=== PATIENT | female | born 1945 | race Caucasian/White ===

== ENCOUNTER 2017-03-27 10:36 | Outpatient (CLI) | payer MEDICARE, OTHER ==
[2017-03-27 18:17] LABS: ALBUMIN/GLOBULIN RATIO 1.3 (1.0-2.2); BILIRUBIN,TOTAL 0.7 mg/dL (0.2-1.0); BUN - BLOOD UREA NITROGEN 18 mg/dL (6-20); CARBON DIOXIDE - CO2 29 mmol/L (21-32); CHLORIDE 102 mmol/L (101-111); CHOL/HDL RATIO 4.1 (<4.4); CHOLESTEROL 186 mg/dL; CREATININE 0.8 mg/dL (0.4-1.0); GFR - MDRD 70 (>89); GLUCOSE 113 mg/dL (70-100); HDL CHOLESTEROL 45 mg/dL; LDL/HDL RATIO 2.4 (<4.4); POTASSIUM 3.8 mmol/L (3.5-5.0); SODIUM 139 mmol/L (135-145); TOTAL PROTEIN 6.8 g/dL (6.7-8.2); TRIGLYCERIDES 156 mg/dL; VLDL CHOLESTEROL 31 mg/dL
[2017-03-27 19:07] LABS: HEMOGLOBIN A1C 0.62 g/dL
== END 2017-03-27 10:37 | disposition home or self-care (01) ==
LOC: LAB.F 10:36
PROVIDERS: ATTEND Nurse Practitioner Family
DX: I10 Essential (primary) hypertension (principal); R73.01 Impaired fasting glucose; E78.5 Hyperlipidemia, unspecified
CPT/HCPCS: 36415; 80053; 80061; 83036

== ENCOUNTER 2021-09-23 10:44 | Outpatient (CLI) | payer MEDICARE, OTHER ==
--- NOTE | 2021-09-23 16:18 | DEXA Report ---
PROCEDURE: Dexa Spine and/or Hip INDICATIONS: POST MENOPAUSAL TECHNIQUE: Dual energy x-ray absorptiometry (DXA) was performed on a [employer] System. Regions measur ed are the AP Spine, femoral neck, and if needed forearm. COMPARISON: None. FINDINGS: Lumbar Spine: Bone Mineral Density 1.346 g/cm/cm,T score 1.4, normal Left Hip: Bone Mineral Density 0.916 g/cm/cm,T score -0.7, normal Left Femoral Neck: Bone Mineral Density 0.803 g/cm/cm, T score -1.7, osteopenia Impression: Osteopenia on the basis of left femoral neck bone mineral density. Patients with diagnosis of osteoporosis or osteopenia should have regular bone mineral density assess ment. For those eligible for Medicare, routine testing is allowed once every 2 years. Testing frequ ency can be increased for patients who have rapidly progressing disease or for those who are receivin g medical therapy to restore bone mass. Reviewed by: Dewey Rico MD on 09/23/2021 4:17 PM PDT Approved by: Dewey Rico MD on 09/23/2021 4:17 PM PDT Station ID: [id number]
== END 2021-09-23 10:45 | disposition home or self-care (01) ==
LOC: DI 10:44
PROVIDERS: ATTEND Nurse Practitioner Family
DX: Z78.0 Asymptomatic menopausal state (principal); M85.88 Other specified disorders of bone density and structure, other site

== ENCOUNTER 2021-09-23 10:47 | Outpatient (CLI) | payer MEDICARE, OTHER ==
--- NOTE | 2021-09-23 15:02 | XRAY Report ---
PROCEDURE: Shoulder 3 View BILAT INDICATIONS: KRYSTIAN SH PN, LOW BACK PN, KRYSTIAN KNEE PN, RADICULOPATHY TECHNIQUE: 3 views of each shoulder were acquired. COMPARISON: None. FINDINGS: Bones: No acute fractures or dislocations. No suspicious bony lesions. Severe degenerative changes are seen in the glenohumeral joints bilaterally with full-thickness joint space narrowing, subchondra l sclerosis, and marginal osteophyte formation. There is prominent remodeling of the humeral heads, w hich may be secondary to primary osteoarthrosis, prior trauma or osteonecrosis with superimposed dege nerative changes, or neuropathic arthropathy. Minimal acromioclavicular degenerative changes are seen . Soft tissues: No suspicious soft tissue calcifications. IMPRESSION: Severe degenerative changes in the bilateral glenohumeral joints with remodeling and fla ttening of the humeral heads, possibly secondary to primary osteoarthrosis, prior trauma or osteonecr osis with superimposed degenerative changes, or neuropathic arthropathy. Reviewed by: Vimal Bennett MD on 09/23/2021 3:01 PM PDT Approved by: Vimal Bennett MD on 09/23/2021 3:01 PM PDT Station ID: [id number]
--- NOTE | 2021-09-23 15:06 | XRAY Report ---
PROCEDURE: Knee 3 View BILAT INDICATIONS: KRYSTIAN SH PN, LOW BK PN, KRYSTIAN KNEE PN TECHNIQUE: 3 views of each knee were acquired. COMPARISON: None. FINDINGS: Bones: No acute fractures or dislocations. No suspicious bony lesions. There is severe narrowing o f the right medial femorotibial compartment joint space with subchondral sclerosis and marginal osteo phyte formation and chronic remodeling of the articular surfaces. Resulting right genu varus is noted . Mild lateral compartment and moderate anterior compartment degenerative changes also noted. Moderat e to severe narrowing of the left medial femorotibial compartment and severe narrowing of the left an terior compartment joint space is also seen with mild degenerative changes at the lateral compartment . Soft tissues: No joint effusion. No suspicious soft tissue calcifications. 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 2.Left tricompartmental osteoarthrosis is severe in the anterior compartment and moderate to severe i n the medial compartment. Reviewed by: Vimal Bennett MD on 09/23/2021 3:04 PM PDT Approved by: Vimal Bennett MD on 09/23/2021 3:04 PM PDT Station ID: [id number]
--- NOTE | 2021-09-23 16:28 | XRAY Report ---
PROCEDURE: Thoracic Spine 2 View INDICATIONS: KRYSTIAN SH PN, LOW BACK PN, KRYSTIAN KNEE PN, RADICULOPATHY TECHNIQUE: 2 views of the thoracic spine were acquired. COMPARISON: None. FINDINGS: Bones: No fractures or dislocations. No suspicious bony lesions. 12 pairs of ribs are noted, and a ppear intact where visualized. Moderate to severe degenerative disc changes noted throughout the thor acic spine. Convex right thoracolumbar junction scoliosis. Moderate facet hypertrophy in the mid lowe r thoracic spine. Soft tissues: No paravertebral stripe thickening. IMPRESSION: 1. Multilevel degenerative disc disease. 2. Multilevel facet arthropathy. 3. No fracture. No acute osseous lesion. If there is continued clinical concern for pathology, then M RI should be considered for further evaluation. Reviewed by: Nora Scott MD, PhD on 09/23/2021 4:26 PM PDT Approved by: Nora Scott MD, PhD on 09/23/2021 4:26 PM PDT Station ID: [id number]
--- NOTE | 2021-09-23 16:31 | XRAY Report ---
PROCEDURE: Lumbar Spine 2 View INDICATIONS: KRYSTIAN SH PN, LOW BACK PN, KRYSTIAN KNEE PN, RADICULOPATHY TECHNIQUE: 30 views of the lumbar spine were acquired. COMPARISON: None. FINDINGS: Bones: 5 [id number] vertebrae are present. There is mild, approximate 5 mm of L1-L2 retrolisth esis. There is convex-right: Lumbar spine scoliosis. Severe degenerative disc changes noted throughou t the lumbar spine. Moderate facet hypertrophy noted throughout the lumbar spine. No vertebral body c ompression fractures. No suspicious bony lesions. Soft tissues: Overlying bowel gas pattern is normal. No suspicious soft tissue calcifications. IMPRESSION: 1. Multilevel degenerative disc disease. 2. Multilevel facet arthropathy. 3. No fracture. No acute osseous lesion. If there is continued clinical concern for pathology, then M RI should be considered for further evaluation. Reviewed by: Noar Scott MD, PhD on 09/23/2021 4:30 PM PDT Approved by: Nora Scott MD, PhD on 09/23/2021 4:30 PM PDT Station ID: [id number]
--- NOTE | 2021-09-23 16:33 | XRAY Report ---
PROCEDURE: Cervical Spine 2 View INDICATIONS: KRYSTIAN SH PN, LOW BACK PN, KRYSTIAN KNEE PN, RADICULOPATHY TECHNIQUE: 30 view(s) of the cervical spine were acquired. COMPARISON: None. FINDINGS: Bones: No fractures or dislocations to the C7 level. The lateral masses of C1 appear intact on the odontoid view. No suspicious bony lesions. 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 Severe C5-C6 and C6-C7 degenerative disc disease. Moderate C3 on C4 degenerative disc disease. Mild facet h ypertrophy noted throughout the cervical spine. Soft tissues: No prevertebral soft tissue swelling. IMPRESSION: 1. Multilevel degenerative disc disease. 2. Multilevel facet arthropathy. 3. No fracture. No acute osseous lesion. If there is continued clinical concern for pathology, then M RI should be considered for further evaluation. 4. 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 Reviewed by: Nora Scott MD, PhD on 09/23/2021 4:31 PM PDT Approved by: Nora Scott MD, PhD on 09/23/2021 4:31 PM PDT Station ID: [id number]
== END 2021-09-23 10:48 | disposition home or self-care (01) ==
LOC: DI 10:47
PROVIDERS: ATTEND Nurse Practitioner Family
DX: M19.012 Primary osteoarthritis, left shoulder (principal); M19.011 Primary osteoarthritis, right shoulder; M17.0 Bilateral primary osteoarthritis of knee; M47.814 Spondylosis without myelopathy or radiculopathy, thoracic region; M51.34 Other intervertebral disc degeneration, thoracic region; M43.16 Spondylolisthesis, lumbar region; M47.816 Spondylosis without myelopathy or radiculopathy, lumbar region; M51.36 Other intervertebral disc degeneration, lumbar region; M43.22 Fusion of spine, cervical region; M47.812 Spondylosis without myelopathy or radiculopathy, cervical region; M50.31 Other cervical disc degeneration, high cervical region; Z78.0 Asymptomatic menopausal state; M85.88 Other specified disorders of bone density and structure, other site